=== PATIENT | female | born 2005 | race Caucasian/White ===

== ENCOUNTER 2024-01-27 21:51 | Emergency (ER) | payer OTHER ==
[~2024-01-27] VITALS: Wt 90.7 kg
[2024-01-27] MEDS ORDERED: AMOX-CLAV 875-1 EACH PO (22:19)
[2024-01-27] MEDS ORDERED: Amoxicillin/Clavulanate Pota 875 MG TAB PO ONE (22:20)
[2024-01-27] MEDS ORDERED: IBUPROFEN 600 MG TAB PO ONE (22:25)
[2024-01-27] MEDS ORDERED: ACETAMINOPHEN 325 MG TAB PO ONE (22:25)
== END 2024-01-27 22:31 | disposition home or self-care (01) ==
LOC: ED 21:51
DX: J02.9 Acute pharyngitis, unspecified (principal); H92.01 Otalgia, right ear; Z88.8 Allergy status to other drugs, medicaments and biological substances